=== PATIENT | male | born 1950 | race Caucasian/White ===

== ENCOUNTER 2020-04-08 03:17 | Outpatient (CLI) | payer MEDICARE, SELFPAY ==
[2020-04-08 17:56] LABS: SARS-CoV-2 RNA PCR Negative
== END 2020-04-08 03:18 | disposition home or self-care (01) ==
LOC: ANHCOVIDDT 03:18
PROVIDERS: Visit Provider Orthopaedic Surgery
DX: Z01.818 Encounter for other preprocedural examination (principal); Z11.59 Encounter for screening for other viral diseases
CPT/HCPCS: 87635; C9803; U0003

== ENCOUNTER 2020-04-08 09:54 | Outpatient (CLI) | payer MEDICARE, SELFPAY ==
--- NOTE | 2020-04-08 09:56 | ECG_ITS ---
Measurements Intervals [place] Rate: 69 P: 62 ME: 159 QRS: 24 QRSD: 112 T: 41 QT: 377 QTc: 404 Interpretive Statements SINUS RHYTHM INTRAVENTRICULAR CONDUCTION DELAY BORDERLINE ECG Electronically Signed On 04-08-2020 10:24:23 CDT by Raza Mcghee D.O.
[2020-04-08 10:31] LABS: Blood Urea Nitrogen 14 mg/dL (9-20); Calcium 8.8 mg/dL (8.4-10.2); Carbon Dioxide 29 mmol/L (22-30); Chloride 104 mmol/L (98-107); Estimated Glomerular Filt Rate > 60; Glucose 110 mg/dL (75-110); Sodium 138 mmol/L (137-145)
== END 2020-04-08 09:55 | disposition home or self-care (01) ==
LOC: ANHSURGERY 09:56
PROVIDERS: Anesthesiology; PCP Family Medicine; Visit Provider Orthopaedic Surgery
DX: Z01.818 Encounter for other preprocedural examination (principal); E11.9 Type 2 diabetes mellitus without complications; Z20.828 Contact with and (suspected) exposure to other viral communicable diseases
CPT/HCPCS: 36415; 80048; 87635; 93005; C9803; U0003

== ENCOUNTER 2020-04-10 02:41 | Day surgery (SDC) | payer MEDICARE, SELFPAY ==
[2020-04-04 10:51] VITALS: BMI 29.2
--- NOTE | 2020-04-09 08:59 | WPDANESEPPF ---
Anes - Initial Pre Proc Eval Procedure: Operation Date: 04/10/20 07:30 Proposed Procedures p Right Achilles Reconstruction, Excision Calcaneal Exostosis, Possible Flexor Hallucis Longus Tendon Transfer - Beny Richey MD Date/Time: 04/09/20 08:59 Surgeon: Beny Richey MD Pre Op Diagnosis: Right Achilles Tendonosis, Calcaneal Exostosis Patient Data Age: 69 Gender: M Height: 1.83 m Weight: 97.7 kg Allergies Allergy/AdvReac Type Severity Reaction Status Date / Time Sulfa (Sulfonamide Allergy Unknown Nausea Verified 04/04/20 10:22 Antibiotics) Home Medications Medication Instructions Recorded Confirmed Type acetaminophen 650 mg 650 mg PO Q8H 03/18/20 04/04/20 History tablet,extended release ascorbic acid (vitamin C) 1,000 mg 1 gm PO DAILY 03/18/20 04/04/20 History tablet cholecalciferol (vitamin D3) 50 50 mcg PO DAILY 03/18/20 04/04/20 History mcg (2,000 unit) capsule cinnamon bark 500 mg capsule 1,000 mg PO DAILY cap 03/18/20 04/04/20 History cyanocobalamin (vitamin B-12) 1,000 mcg PO DAILY 03/18/20 04/04/20 History 1,000 mcg capsule glucosamine sulfate 2KCl 1,000 mg 1,000 mg PO BID 03/18/20 04/04/20 History tablet levothyroxine 25 mcg capsule 25 mcg PO DAILY 03/18/20 04/04/20 History metformin 500 mg tablet,extended 500 mg PO HS 03/18/20 04/04/20 History release 24 hr multivitamin 1 tablet PO DAILY 03/18/20 04/04/20 History potassium gluconate 595 mg (99 mg) 595 mg PO DAILY 03/18/20 04/04/20 History tablet vitamin E (dl, acetate) 400 unit 400 unit PO DAILY 03/18/20 04/04/20 History capsule celecoxib [Celebrex] 200 mg PO DAILY 04/04/20 04/04/20 History Patient hx anesthesia problems: none Family hx anesthesia problems: none PMFSH Past Medical History Medical History (Updated 04/09/20 @ 08:59 by Manas Lazo DO) 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 Alcohol intake: current Substance use: never Living arrangements: with family Spiritual care concerns: No Anes - Eval Final PreProcedure Day of Procedure 04/09/20 08:59 Patient weight: overweight Heart: regular rate and rhythm Lungs: clear to auscultation and normal air movement Airway: Mallampati scale class II Neurological: alert and oriented Last oral intake: >/= 8 hours ASA classification: III Emergent: no Anesthetic plan: proceed Anesthesia type and monitoring: general LMA and standard monitoring Informed Consent: The patient's anesthetic plan and its attendant risks and benefits were discussed with the patient/family/POA. Questions were solicited and answers provided to the satisfaction of the patient/family/POA.
[2020-04-10] VITALS (7 sets, daily range): BP systolic 119–157; BP diastolic 61–79; PULSE 60–94; RESP 12–20; TEMP 35.9–36.2; O2SAT 96–100
--- NOTE | ~2020-04-10 | XR_ITS ---
EXAMINATION: XR surgery orthopedic EXAM DATE: 04/10/2020 08:31 INDICATION: Right foot pain, calcaneal enthesopathy. TECHNIQUE: Fluoroscopy used during XR surgery orthopedic performed by Dr. Beny Richey MD. The DAP for this procedure was 0.002 mGym2. Correlation made to right ankle x-ray 03/18/2020 FINDINGS: Images demonstrate posterior calcaneal soft tissue defect and also likely resection of the large calcaneal enthesopathy seen on prior study. Correlate with procedure note. IMPRESSION: Fluoroscopy used during right calcaneal surgery. Reviewed, dictated and finalized at location A.
[2020-04-10] MEDS: LACTATED RINGERS 1,000 ML 30 ML IV CONT ×2 (06:41→09:18)
[2020-04-10] MEDS: KETOROLAC 15 MG/ML VIAL (*BKC) IV PUSH (06:42)
[2020-04-10] MEDS: ACETAMINOPHEN 500 MG TABLET 1000 MG PO (06:42)
[2020-04-10 06:48] LABS: Glucose Point of Care 134 (65-105)
--- NOTE | 2020-04-10 07:02 | WPDHPUPDATE1 ---
History and Physical Update Update Date/Time: 04/10/20 07:02 History and Physical has been reviewed, including an updated exam of the patient. There are NO changes in the patient's condition. Covid test negative. Risks, benefits, and alternatives have been discussed and questions answered. Patient agrees to proceed with procedure.
[2020-04-10] MEDS: ceFAZolin 2 GM/D5W 50 ML 2 GM/50 ML BAG IVPB (07:30)
--- NOTE | 2020-04-10 09:32 | PM.PROC ---
Procedure Note - Detailed Date of procedure: 04/10/20 Pre-op diagnosis: Right Achilles Tendonosis, Calcaneal Exostosis Post-op diagnosis: same Procedure performed: Right Achilles tendon reconstruction, excision calcaneal exostosis Description of procedure: Indications: Patient is a 69-year-old gentleman with right Achilles insertional tendinitis and a large posterior calcaneal exostosis. He has failed conservative treatment and presents now for operative treatment. What was done: Patient identified in the preoperative holding. Informed consent given. Operative extremity marked. Patient received intravenous antibiotics. Patient brought to the operating room where underwent general anesthetic by anesthesia team. Positioned prone on operating room table. Care was taken to ensure padding for the bony prominences and securing of the head neck during turning as well as neck position and upper extremity positioning after turning prone. Time-out performed confirming the patient, site of the surgery and the plan. Right lower extremity prepped draped usual sterile surgical fashion using a ChloraPrep skin solution. Foot and ankle exsanguinated and a thigh tourniquet inflated to 250 mmHg. Posterior midline longitudinal incision made at the insertion of the Achilles tendon on the posterior calcaneus with a 15 blade knife. Hemostasis controlled electrocautery. Full-thickness flaps were developed from the skin down to the paratenon and the paratenon was then incised in line with skin incision over the Achilles tendon. The Achilles tendon was then split in the midline and elevated off the attachment site on the posterior calcaneus. There was thickening and scar tissue of the distal Achilles which was sharply debrided. Osteotomes were then used to remove the large exostosis from the posterior calcaneus. Edges were smoothed with a rongeur. Image intensification was used to confirm the resection level and removal of all the prominent posterior bone spur. Wound was thoroughly irrigated with antibiotic solution. Rongeur was then used to remove the retrocalcaneal bursa. Any bleeding points were coagulated. The Achilles tendon was then reconstructed using the Achilles speed bridge fixation system. 3.5 mm drill holes were placed medial and lateral at the posterior calcaneus. Push lock suture anchor with 2mm FiberTape inserted into the drill holes which was then passed through the distal Achilles tendon. One limb of the FiberTape was crossed and then final fixation was achieved and distal 3.5 mm drill holes using the swivel lock anchor. Good fixation was noted. Midline incision of the Achilles was repaired with 0 Vicryl interrupted suture. Thorough irrigation done once again. Paratenon repaired with 3 0 Monocryl interrupted suture. Distal medial and lateral soft tissue repaired with 0 Vicryl interrupted suture. Subcutaneous tissue repaired with 3 0 Monocryl interrupted suture and skin repaired with 4 nylon running suture. Sterile dressing applied. Tourniquet released and good capillary refill noted in the toes. Well-padded splint applied with the ankle in neutral. The patient was then woken from anesthesia, extubated and taken to the recovery room in stable condition. All sponge, needle, instrument counts were correct at the end of the case. Implants: Arthrex 4.75 mm suture bridge Anesthesia: GETA Surgeon: Beny Richey MD Tnt Powder Worker: 1st assistant guest services manager Estimated blood loss (mL): 5 Tourniquet time (min): 60 Drains: No Packing: No Pathology: none sent Complications: None Condition: stable Disposition: PACU
[2020-04-10 09:35] LABS: Glucose Point of Care 141 (65-105)
== END 2020-04-10 10:55 | disposition home or self-care (01) ==
PROVIDERS: Visit Provider Orthopaedic Surgery
PROC: (CPT 27650; principal; 2020-04-10 07:30)
DX: M67.873 Other specified disorders of tendon, right ankle and foot (principal); M77.31 Calcaneal spur, right foot; E11.40 Type 2 diabetes mellitus with diabetic neuropathy, unspecified; Z79.84 Long term (current) use of oral hypoglycemic drugs; E03.9 Hypothyroidism, unspecified; G47.33 Obstructive sleep apnea (adult) (pediatric); M19.90 Unspecified osteoarthritis, unspecified site; F17.210 Nicotine dependence, cigarettes, uncomplicated; Z88.2 Allergy status to sulfonamides; Z79.899 Other long term (current) drug therapy
CPT/HCPCS: 27650; 28118; A9270; C1713; J0330; J0690; J1100; J1885; J2370; J2405; J2704; J3010; J7120